=== PATIENT | female | born 1970 | race Caucasian/White ===

== ENCOUNTER → 2022-04-06 | Outpatient (CLI) | payer BC | LOC: MC.RAD 12:16 | DX: Z12.31 Encounter for screening mammogram for malignant neoplasm of breast (principal); N64.89 Other specified disorders of breast ==

== ENCOUNTER → 2022-04-12 | Outpatient (CLI) | payer BC | LOC: MC.RAD 07:00 | DX: N63.22 Unspecified lump in the left breast, upper inner quadrant (principal); N63.21 Unspecified lump in the left breast, upper outer quadrant | CPT/HCPCS: A4648 ==

== ENCOUNTER → 2022-06-07 | Outpatient (CLI) | payer BC ==
[~2022-06-07] MED LIST: BETAMETHASONE D15 G1 TP; CERAVE DAILY M355 ML TP; GENTLE LAXATIVE10 MG RC; MIRALAX PA17 GM/Dose PO; NORCO 325 MG-51 TAB PO; SYNTHROID 0.0.025 MG PO; TAB-A-VITE TA400 MCG PO; TYLENOL 325MG325 MG PO; WELLBUTRIN SR150 M1 PO; ZEBETA 5MG5 MG PO; ZESTRIL 10MG10 MG PO; ZOLOFT 25MG25 MG PO; ZYRTEC 10MG10 MG PO
== END ==
LOC: COL.RAD 13:12 → MC.RAD 13:30 → COL.RAD 13:30
DX: C50.212 Malignant neoplasm of upper-inner quadrant of left female breast (principal); C50.412 Malignant neoplasm of upper-outer quadrant of left female breast
CPT/HCPCS: A9520

== ENCOUNTER 2022-06-08 05:13 | Day surgery (SDC) | payer BC ==
[2022-06-08] VITALS (11 sets, daily range): BP systolic 97–138; BP diastolic 54–87; PULSE 66–93; TEMP 97.6–98.6
[~2022-06-08] VITALS: Wt 67.5 kg
[2022-06-08] MEDS ORDERED: WELLBUTRIN SR150 M1 PO (05:51)
--- NOTE | 2022-06-08 12:10 | NUR ---
PT ARRIVED FROM PACU. PT IS AXOX4. PT COMPLAINING OF NAUSEA WITH NO EMESIS. PT UP TO AMBULATE TO BATHROOM WITH STAND BY ASSIST. VSS. PT ORIENTED TO ROOM AND FLOOR. PTS FAMILY BEDSIDE. PT HAS CALL LIGHT WITHIN REACH. PT GIVEN WATER, ICE, AND ZOFRAN. PT INSTRUCTED TO CALL WITH ALL NEEDS.
[2022-06-08] MEDS ORDERED: TYLENOL 325MG325 MG PO (20:24)
[2022-06-08] MEDS ORDERED: GENTLE LAXATIVE10 MG RC (20:27)
[2022-06-08] MEDS ORDERED: ZEBETA 5MG5 MG PO (20:27)
[2022-06-08] MEDS ORDERED: BETAMETHASONE D15 G1 TP (20:27)
[2022-06-08] MEDS ORDERED: ZESTRIL 10MG10 MG PO (20:29)
[2022-06-08] MEDS ORDERED: ZYRTEC 10MG10 MG PO (20:29)
[2022-06-08] MEDS ORDERED: ZOLOFT 25MG25 MG PO (20:30)
[2022-06-08] MEDS ORDERED: MIRALAX PA17 GM/Dose PO (20:30)
[2022-06-08] MEDS ORDERED: SYNTHROID 0.0.025 MG PO (20:31)
[2022-06-08] MEDS ORDERED: TAB-A-VITE TA400 MCG PO (20:31)
[2022-06-08] MEDS ORDERED: CERAVE DAILY M355 ML TP (20:32)
--- NOTE | 2022-06-08 21:21 | NUR ---
ASSESSMENT COMPLETE. PT. SITTING UP IN BED EATING PRETZALS. A&O. COMPLAINING OF DISCOMFORT AT REST AND PAIN 5/10 WITH MOVMENET. STATED NORCO HELPED WITH PAIN. DRESSING TO LEFT SIDE OF CHEST CDI. LALITA TO LEFT BREAST CDI AND WELL APPROXIMATED. TWO JAMILAH DRAINS TO LEFT SIDE TO BULB SUCTION. COMPLAINING OF SOME NAUSEA BUT STATES PRETZALS HELP. CALL LIGHT IN REACH. NO FURHTER NEEDS AT THIS TIME.
[2022-06-09 00:26] VITALS: BP 91/49; PULSE 89; TEMP 97.9
[2022-06-09 04:30] VITALS: BP 93/53; PULSE 78; TEMP 98
[2022-06-09 07:59] VITALS: BP 103/67; PULSE 82; TEMP 98.2
[2022-06-09] MEDS ORDERED: NORCO 325 MG-51 TAB PO (09:03)
--- NOTE | 2022-06-09 10:56 | NUR ---
DISCHARGE INSTRUCTIONS PROVIDED. FOLLOW UP APPOINTMENTS DISCUSSED. PATIENT DENIES ANY QUESTIONS OR CONCERNS. PORT DE-ACCESSED. PATIENT ESCORTED OUT VIA WHEELCHAIR.
== END 2022-06-09 10:55 | disposition home or self-care (01) ==
LOC: SDCO 05:13 → SURG 12:10 → SDCO 06-09 10:55
DX: C50.412 Malignant neoplasm of upper-outer quadrant of left female breast (principal); C50.212 Malignant neoplasm of upper-inner quadrant of left female breast; Z17.0 Estrogen receptor positive status [ER+]; Z87.891 Personal history of nicotine dependence
CPT/HCPCS: OP; C1789; J0690; J1580; J2250; J2270; J2405; J2704; J3010; J7120; Q4122